=== PATIENT | male | born 1995 | race Caucasian/White ===

== ENCOUNTER 2023-09-23 14:03 | Emergency (ER) | payer MEDICAID, SELFPAY ==
[2023-09-23 16:23] LABS: Glucose Point of Care 151 mg/dL (70-110)
[2023-09-23 16:54] VITALS: BP 141/101; PULSE 90; RESP 14; O2SAT 98
--- NOTE | 2023-09-23 18:35 | ED_ITS ---
HPI - Eye Problem General: Chief complaint: Eye Problems Stated complaint: LT eye inj Time Seen by Provider: 09/23/23 16:16 Source: patient Mode of arrival: ambulatory Limitations: no limitations History of Present Illness: Patient is a 28-year-old male presenting to the emergency department complaining of left eye visual change onset today. Patient states he has a history of diabetic retinopathy and has had visual changes before. He sees Dr. Dahl and once a month receives an intravitreous injection. He is not having any pain or swelling, states he just was concerned when he developed a haze over his left eye that has obscured his vision. He notes that he can still see things, however has to strain harder. This did occur atraumatically and while at rest. He does note he recently started some new [id number] eyedrops. He has an appointment with Dr. Dahl coming up for reevaluation, states he just came here because he was beginning to get worried. Patient is noted to be anxious on initial examination. Vitals are normal on arrival. No overt visual disturbance or outward abnormality noted at this time. chief complaint: vision change Onset (ago): day(s) Onset description: sudden Duration: constant Location: left eye Mechanism: none Severity: mild Associated symptoms: Reports no associated symptoms; Denies fever(s), headache(s), nausea, neck pain or vomiting Review of Systems General: Reports: 10 or more systems reviewed and unremarkable except in HPI and below Const: Denies: fever(s), chills or fatigue Eyes: Reports: change in vision; Denies: eye discomfort, eye discharge or eye redness ENMT: Denies: throat pain, ear or mastoid pain or nasal discharge Card: Denies: chest pain, palpitations, swelling of feet/ankles or lightheadedness Resp: Denies: dyspnea, productive cough or wheezing GI: Denies: abdominal pain, nausea, vomiting, diarrhea or constipation : Denies: flank pain, difficulty urinating, dysuria or urinary frequency Musc: Denies: neck pain, back pain or joint pain Skin/Breast: Denies: rash Neuro: Denies: headache(s), numbness in extremities or weakness in extremities PFSH ED PFSH: Social History Smoking and tobacco/nicotine status: never used tobacco/nicotine Physical Exam Const: COMMON NORMALS: no acute distress, patient oriented x3 and no limitations GENERAL APPEARANCE: cooperative, comfortable and well developed ORIENTATION/CONSCIOUSNESS: Yes awake, Yes oriented to person, Yes oriented to place and Yes oriented to time HENMT: COMMON NORMALS: normocephalic, atraumatic and hearing grossly normal bilaterally HEAD & SCALP: normocephalic and atraumatic Eye: COMMON NORMALS: Equal, round and reactive pupils present, EOMs intact bilaterally, conjunctivae normal, no scleral icterus, no papilledema and normal visual leger by confrontation GENERAL EYE: appearance normal, both eyes and all related structures and normal light reflex VISUAL ACUITY: Yes acuity normal ALIGNMENT: Yes alignment normal PERIORBITAL: periorbital findings normal CONJUNCTIVA: Yes conjunctivae normal PUPIL: Yes Equal, round and reactive pupils present DIRECT OPHTHALMOSCOPY: Yes normal light reflex, Yes no papilledema and Yes anterior chamber normal Neck/C-Spine: COMMON NORMALS: full ROM, supple and no JVD Resp: COMMON NORMALS: normal respiratory effort, No retractions, No use of accessory muscles and clear to auscultation bilaterally AUSCULTATION: clear to auscultation bilaterally Cardio: COMMON NORMALS: no JVD, regular rate, regular rhythm, No clicks present (Cardio), No murmurs present (Cardio) and No rub (Cardio) RATE: regular rate RHYTHM: regular rhythm Extremity: COMMON NORMALS: normal to inspection, full ROM and capillary refill normal Neuro: COMMON NORMALS: patient oriented x3, moves all extremities, no focal motor deficits and no sensory deficits noted SENSORIUM/ORIENTATION: Yes oriented to person, Yes oriented to place and Yes oriented to time Psych: COMMON NORMALS: mental status grossly normal and Normal thought process present THOUGHT PROCESS: Normal thought process present Skin: COMMON NORMALS: no rashes or lesions noted GENERAL SKIN EXAM: no rashes or lesions noted Course Vital Signs: Vital signs: Vital Signs Pulse Rate 90 09/23/23 16:54 Respiratory Rate 14 09/23/23 16:54 Blood Pressure 141/101 09/23/23 16:54 Pulse Oximetry 98 09/23/23 16:54 MDM - Eye Problem Medical Decision Making I spoke with on-call librarian school, Dr. Amaury Dahl, in regards to patient's past medical history and current complaints. He states that the majority of the time with diabetic patients this becomes macular edema with potential bleeding into the vitreous, while needs to be seen by ophthalmology is nothing emergent and no further workup necessary at this time. I have no concern at this time for any acute angle-closure glaucoma or papilledema, and due to patient's upcoming follow-up appointment will discharge home with instructions to follow- up. Dr. Dahl agrees with this plan at this time. This is relayed to patient and he states that he will follow-up and return if he develops any pain swelling or other concerning signs. His vitals were normal including a normal blood pressure and blood sugar that is reportedly within range for patient at 151. Lab Data Laboratory Results POC Glucose 151 mg/dL (70-110) H 09/23/23 16:21 No radiology studies performed this visit Discharge Plan Discharge Patient Disposition: Home Clinical Impression: Diabetic macular edema, left eye Condition: Stable Prescriptions: No Action sulfamethoxazole-trimethoprim [Bactrim DS] 800-160 mg tablet 1 tab PO BID 7 Days Qty: 14 0RF Discharge Orders: Discharge ED (Routine); Ordered 09/23/23 Ordered By: Constantin Espinoza Referrals: Twila Villafuerte [Primary Care Provider] - Discharge Diet: Usual diet Discharge Activity: Increase activity as tolerated Patient Instructions: Diabetic Retinopathy (ED) Activity Restrictions/Additional Instructions: Please follow-up with ophthalmology tomorrow as discussed. If you develop any pain, worsening of vision, or other concerning symptoms regarding your eye, please return for reevaluation. Coding Level of Care Code ED [employer] Super[employer] for Melani Delgado
== END 2023-09-23 16:55 | disposition home or self-care (01) ==
PROVIDERS: Emergency Provider Physician Assistant; PCP Registered Nurse
DX: E11.311 Type 2 diabetes mellitus with unspecified diabetic retinopathy with macular edema (principal)
CPT/HCPCS: 36416; 82962; 99283